=== PATIENT | female | born 1995 | race Hispanic/Latino ===

== ENCOUNTER 2023-10-01 09:42 | Inpatient (IN) | payer MEDICAID, OTHER, SELFPAY ==
[2023-10-01] MEDS ORDERED: Carboprost 250 MCG/ML AMP IM PRN (10:02)
[2023-10-01] MEDS ORDERED: Ibuprofen 800 MG TAB PO PRN (10:02)
[2023-10-01] MEDS ORDERED: Methylergonovine 0.2 MG/ML VIAL IM PRN (10:02)
[2023-10-01] MEDS ORDERED: Ondansetron PF 4 MG/2 ML Vial IVP PRN ×2 (10:02→18:18)
[2023-10-01] MEDS ORDERED: Misoprostol 200 MCG TAB PR PRN (10:02)
[2023-10-01] MEDS ORDERED: hydrALAZINE 20 MG/ML VIAL SLOW IVP PRN ×2 (10:02→18:18)
[2023-10-01] MEDS ORDERED: HYDROcodone/Acetaminophen 5/325 mg Tablet PO PRN ×2 (10:02→18:18)
[2023-10-01] MEDS ORDERED: Lidocaine 1% (PF) 30 ML VIAL SC PRN (10:02)
[2023-10-01] MEDS ORDERED: fentaNYL 50 mcg/mL 1 mL Vial SLOW IVP PRN (10:02)
[2023-10-01] MEDS ORDERED: Tranexamic Acid 1,000 MG/10 ML VIAL IVP PRN (10:02)
[2023-10-01] MEDS ORDERED: Diphenoxylate HCl/Atropine Tablet PO PRN (10:02)
[2023-10-01] MEDS ORDERED: Acetaminophen 500 MG TAB PO PRN (10:02)
[2023-10-01] MEDS ORDERED: Promethazine HCl 25 MG/ML VIAL IM PRN ×2 (10:02→18:18)
[2023-10-01] MEDS ORDERED: Oxytocin 30 units/NS 500 ML 500 ML IV SCH ×3 (10:15)
[2023-10-01] MEDS ORDERED: Lactated Ringer's 1,000 ML IV SCH (10:15)
[2023-10-01 10:22] VITALS: BMI 29.8
[2023-10-01 10:55] LABS: Hematocrit 32.9 % (34.9-44.5); Hemoglobin 10.5 g/dL (12.0-15.5); Mean Corpuscular HGB CONC 31.9 g/dL (32.0-36.0); Mean Corpuscular Hemoglobin 28.5 pg (27.0-33.0); Mean Corpuscular Volume 89.2 fl (81.6-98.3); Mean Platelet Volume 11.6 fl (7.4-10.4); Platelet Count 240 10x3/uL (150-450); RBC Distribution Width 12.9 % (11.5-14.5); Red Blood Cell (RBC) Count 3.69 10x6/uL (3.90-5.03); White Blood Cell (WBC) Count 6.9 10x3/uL (3.5-10.5)
[2023-10-01 11:34] LABS: HBSAg Index 0.13 S/CO (0-0.99); Hep B Surf Ag - L&D Non-Reactive S/CO (NonReactive)
[2023-10-01 11:35] LABS: Syphilis Antibody Nonreactive (Nonreactive); Syphilis Antibody Index 0.05 S/CO (<1.00 Non-Reactive)
[2023-10-01] MEDS ORDERED: Lanolin Ointment 7 GM TUBE TOP PRN (18:18)
[2023-10-01] MEDS ORDERED: diphenhydrAMINE 25 MG CAP PO PRN (18:18)
[2023-10-01] MEDS ORDERED: Boostrix 0.5 ML (Tdap) VIAL (>/=7 yrs of age) IM ONE (18:18)
[2023-10-01] MEDS ORDERED: Milk Of Magnesia 30 ML UDCUP PO PRN (18:18)
[2023-10-01] MEDS ORDERED: Benzocaine-Menthol 82.5 ML CAN TOP PRN (18:18)
[2023-10-01] MEDS ORDERED: Bisacodyl 10 MG SUPP PR PRN (18:18)
[2023-10-01] MEDS ORDERED: Ferrous Sulfate 325 MG TAB PO SCH (18:30)
[2023-10-01] MEDS: Ibuprofen 800 MG TAB PO SCH (21:17)
[2023-10-01] MEDS: Docusate 100 MG CAP PO SCH (21:17)
[2023-10-02] MEDS: Ibuprofen 800 MG TAB PO SCH ×2 (06:23→13:42)
[2023-10-02] MEDS ORDERED: Ferrous Sulfate 325 MG TAB PO SCH (08:00)
[2023-10-02] MEDS: Docusate 100 MG CAP PO SCH (08:01)
[2023-10-02] MEDS ORDERED: Prenatal Vitamin 1 TAB PO SCH (09:00)
[2023-10-02 11:33] VITALS: BP 109/63; TEMP 98
== END 2023-10-02 18:15 | disposition home or self-care (01) | DRG 807 ==
LOC: CSHLD 09:42 → CSHPP 17:41
PROVIDERS: ADMIT Family Medicine; ATTEND Family Medicine
PROC: 10907ZC Drainage of Amniotic Fluid, Therapeutic from Products of Conception, Via Natural or Artificial Opening (ICD-10-PCS; principal; 2023-10-01)
PROC: 10E0XZZ Delivery of Products of Conception, External Approach (ICD-10-PCS; 2023-10-01)
DX: O80 Encounter for full-term uncomplicated delivery (principal); Z37.0 Single live birth; Z3A.39 39 weeks gestation of pregnancy
CPT/HCPCS: 36415; 85027; 86780; 86850; 86900; 86901; 87340; J2590